=== PATIENT | female | born 1965 ===

== ENCOUNTER 2023-11-29 11:44 | Day surgery (SDC) | payer OTHER ==
[~2023-11-29] VITALS: Ht 152.4 cm; Wt 64.3 kg
[~2023-11-29 11:44] MED LIST: ALBU90OI; FLUT1DIS5 INH; GABA100; Lactated Ringer's 1,000 ML IV ONE; TRAZ100; ZYRTEC10 M2; propofoL 50 ML IV ONE
[2023-11-29] MEDS ORDERED: HYDHCL25 (12:08)
[2023-11-29] MEDS ORDERED: Lactated Ringer's 1,000 ML IV ONE (12:30)
[2023-11-29] MEDS ORDERED: Midazolam HCL 1 MG/ML 5MLVIAL ONE (12:47)
[2023-11-29] MEDS ORDERED: propofoL 50 ML IV ONE ×2 (12:55→13:15)
== END 2023-11-29 13:52 | disposition home or self-care (01) ==
LOC: ORSCSDS 11:44
PROVIDERS: Internal Medicine Gastroenterology
PROC: 0DBK8ZX Excision of Ascending Colon, Via Natural or Artificial Opening Endoscopic, Diagnostic (ICD-10-PCS; principal; 2023-11-29 13:00)
PROC: 0DB98ZX Excision of Duodenum, Via Natural or Artificial Opening Endoscopic, Diagnostic (ICD-10-PCS; principal; 2023-11-29 13:00)
PROC: 0DBE8ZX Excision of Large Intestine, Via Natural or Artificial Opening Endoscopic, Diagnostic (ICD-10-PCS; principal; 2023-11-29 13:00)
PROC: 0DBH8ZX Excision of Cecum, Via Natural or Artificial Opening Endoscopic, Diagnostic (ICD-10-PCS; principal; 2023-11-29 13:00)
PROC: 0DB78ZX Excision of Stomach, Pylorus, Via Natural or Artificial Opening Endoscopic, Diagnostic (ICD-10-PCS; principal; 2023-11-29 13:00)
DX: R19.7 Diarrhea, unspecified (principal); Z86.0100 Personal history of colon polyps, unspecified; R14.0 Abdominal distension (gaseous); R10.13 Epigastric pain; R10.84 Generalized abdominal pain; D12.0 Benign neoplasm of cecum; D12.2 Benign neoplasm of ascending colon; K29.70 Gastritis, unspecified, without bleeding; K62.3 Rectal prolapse; F17.210 Nicotine dependence, cigarettes, uncomplicated; K76.0 Fatty (change of) liver, not elsewhere classified
CPT/HCPCS: 88305; 88342; J2250; J2704; J7120